=== PATIENT | female | born 1960 | race Two or more races ===

== ENCOUNTER 2025-08-18 21:41 | Emergency (ER) | payer MEDICAID, OTHER ==
[~2025-08-18] VITALS: Ht 170.2 cm; Wt 69.4 kg
--- NOTE | 2025-08-18 22:42 | DVH ---
CLINICAL INDICATION: FALL, pain TECHNIQUE: XYXY R ANKLE 2 VIEW XRAY Comparison: None FINDINGS/IMPRESSION: : Nondisplaced transverse lateral malleolar fracture just below the level of the syndesmosis. Alignmen t is anatomic. Ankle mortise is congruent and talar dome intact. Prominent plantar calcaneal spur.
--- NOTE | 2025-08-18 23:54 | ED.PDOC ---
Back pain HPI HPI Comments PT COMES WITH C/C OF RIGHT ANKLE PAIN AND SWELLING. PT REPORTS STEPPING IN POT HOLE AND ROLLING ANKLE UNBALE TO APPLY ANY WEIGHT. 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 History Family History Family History: Reviewed,noncontributory to illness Social History Smoker: Non-Smoker Alcohol: Denies ETOH Use Drugs: Denies Drug Use All Other Systems: Reviewed and Negative (SEE HPI) Physical Exam General Appearance: No Apparent Distress, Normal HEENT: Pharynx Normal Neck: Full Range of Motion, Non-Tender Respiratory: Lungs Clear, No Respiratory Distress, Normal Breath Sounds Cardiovascular: No Murmur, Normal Peripheral Pulses, Regular Rate/Rhythm Breast Exam: Deferred Gastrointestinal: Non Tender, Soft Genitalia: Deferred Pelvic: Deferred Rectal: Deferred Extremities: Normal capillary refill, Normal range of motion Musculoskeletal : Location: Right Extremity Location: Ankle (LATERAL ASPECT ALONG MALLEOLUS MODERATE EDEMA POSITIVE TENDERNESS NO NOTED OPEN LESIONS LACERATIONS OR ABRASIONS POSITIVE ECCHYMOSIS STRENGTH SENSORY MOTION INTACT POSITIVE PEDAL PULSE) Apperance: Normal Neurologic: Alert, No Motor Deficits, Normal Affect, Normal Mood, No Sensory Deficits Cerebellar Function: Normal Reflexes: NOT DONE Skin: Dry, Normal Color, Warm Lymphatic: No Adenopathy Was a procedure done? Was a procedure done?: No Back Pain Differential Dx Differential Diagnosis: Fracture, Musculoskeletal Pain Time of 1ST Reevaluation: 22:30 Reevaluation 1ST: Unchanged Time of 2ND Reevaluation: 23:52 Reevaluation 2ND: Improved Patient Education/Counseling: Diagnosis, Treatment, Need For Follow Up Family Education/Counseling: Diagnosis, Treatment, Need For Follow Up SEPSIS Sepsis Screen Date sepsis recognized/suspect: Aug 18, 2025 Time Sepsis recognized/suspect: 2146 Recent Procedure: No On Antibiotic Therapy: No Respiratory Rate >20: No Heart Rate >90: No Temp<36 C (96.8 F) or >38.3 C: No SBP <90 or MAP <65 mmHG: No New Acute Mental Status Change: No Is the patient on CPAP, BIPAP,: No Physician Orders R Ankle 2 View Xray (08/18/25 21:49) Splints (08/18/25 ) Crutches And Crutch Training (08/18/25 23:54) Departure 1 Departure Time of Disposition: 23:51 Impression: Primary Impression: Lateral malleolar fracture Qualified Codes: S82.64XA - Nondisplaced fracture of lateral malleolus of right fibula, initial encounter for closed fracture Disposition: 01 HOME / SELF CARE / HOMELESS Condition: Stable e-Prescriptions Diclofenac Sodium (Diclofenac Sodium Ec) 50 Mg Tab 1 TAB PO BID PRN for 10 Days, #20 TAB Prov: CAROL SEXTON 08/19/25 Discharged With: Self Critical Care Note Critical Care Time?: No Stability Stability form required: No CAROL SEXTON Aug 18, 2025 23:54
[2025-08-19] MEDS ORDERED: DICL50TA4 PO (01:17)
[2025-08-19 01:27] VITALS: BP 144/83; PULSE 88; RESP 20; TEMP 98.1; O2SAT 97
== END 2025-08-19 01:28 | disposition home or self-care (01) ==
LOC: ER 21:41
DX: S82.64XA Nondisplaced fracture of lateral malleolus of right fibula, initial encounter for closed fracture (principal); X50.1XXA Overexertion from prolonged static or awkward postures, initial encounter; Y93.89 Activity, other specified; Y92.89 Other specified places as the place of occurrence of the external cause; Y99.8 Other external cause status
CPT/HCPCS: 29515; 73600